=== PATIENT | female | born 1950 | race Caucasian/White ===

== ENCOUNTER 2022-09-13 13:19 | Emergency (ER) | payer OTHER ==
[~2022-09-13] VITALS: Ht 167.6 cm; Wt 61.2 kg
[2022-09-13] MEDS ORDERED: AMLODIPINE 2.5 MG TABLET PO ONE ×2 (15:00→19:00)
[2022-09-13] MEDS ORDERED: AMLODIPINE 2.5 MG TABLET ONE ×2 (15:01→19:02)
[2022-09-13] MEDS ORDERED: AMLO2.5T4 PO (15:46)
--- NOTE | 2022-09-13 16:30 | NUR ---
Patient in bed, resting. Easily arousable. Denies chest pain or shortness of breath.
--- NOTE | 2022-09-13 17:00 | NUR ---
Spoke with [facility] ambulance, ETA
--- NOTE | 2022-09-13 18:05 | NUR ---
Notified board and care regarding patient's prescription and MD's instructions.
--- NOTE | 2022-09-13 19:35 | NUR ---
Patient picked up by ambulance to return to her board and care.
[2022-09-13 19:38] VITALS: BP 179/101
== END 2022-09-13 19:35 ==
LOC: ER 13:19
DX: I10 Essential (primary) hypertension (principal); G35 Multiple sclerosis; R53.1 Weakness
CPT/HCPCS: 71045; A4663